=== PATIENT | male | born 1985 | race Caucasian/White ===

== ENCOUNTER 2019-05-22 19:17 | Emergency (ER) | payer BC ==
[2019-05-22] MEDS ORDERED: LIDOCAINE 2% W/EPI 1:200,000 MPF 20 ML VIAL IM ONE (19:59)
--- NOTE | 2019-05-22 20:15 | EDPHYS ---
Physician Documentation [facility] Name: William Malave Age: 33 yrs Sex: Male : 1985 Arrival Date: 05/22/2019 Time: 19:19 Bed 20 Private MD: Maciej Reed ED Physician June Pabon HPI: 05/22 20:10 This 33 yrs old Male presents to ER via Ambulatory with complaints of ma2 Laceration. 20:10 The complaints affect the right mnotoya. Context: The problem was sustained at home. ma2 Onset: The symptoms/episode began/occurred suddenly, 1 hour(s) ago. Associated signs and symptoms: Pertinent negatives fever, tingling, vomiting. Severity of symptoms: At their worst the symptoms were mild, in the emergency department the symptoms are unchanged. Historical: - Allergies: 19:53 No Known Allergies; lp1 - Home Meds: 19:53 Unable to obtain [Active]; lp1 - PMHx: 19:53 Depression; lp1 - PSHx: 19:53 Cholecystectomy; Hernia repair; lp1 - Immunization history:: Last tetanus immunization: > 10 years ago. - Social history:: Smoking status: Patient uses tobacco products, smokes one-half pack cigarettes per day, Patient/guardian denies using alcohol, street drugs, The patient lives with family. - Ebola Screening: : No symptoms or risks identified at this time. - Family history:: not pertinent. ROS: 20:10 Constitutional: Negative for fever, chills, and weight loss. ma2 20:10 All other systems are negative. Exam: 20:10 Constitutional: This is a well developed, well nourished patient who is awake, alert, ma2 and in no acute distress. Head/Face: Normocephalic, atraumatic. Cardiovascular: Regular rate and rhythm with a normal S1 and S2. No gallops, murmurs, or rubs. Normal PMI, no JVD. No pulse deficits. Respiratory: Lungs have equal breath sounds bilaterally, clear to auscultation and percussion. No rales, rhonchi or wheezes noted. No increased work of breathing, no retractions or nasal flaring. Abdomen/GI: Soft, non-tender, with normal bowel sounds. No distension or tympany. No guarding or rebound. No evidence of tenderness throughout. Back: No spinal tenderness. No costovertebral tenderness. Full range of motion. MS/ Extremity: Pulses equal, no cyanosis. Neurovascular intact. Full, normal range of motion. Neuro: Awake and alert, GCS 15, oriented to person, place, time, and situation. Cranial nerves II-XII grossly intact. Motor strength 5/5 in all extremities. Sensory grossly intact. Cerebellar exam normal. Normal gait. 20:10 Skin: injury, laceration(s), the wound is approximately 15 cm(s), with a depth of 1 cm(s), of the left leg. Vital Signs: 19:52 BP 138 / 93; Pulse 102; Resp 18; Temp 98.3(O); Pulse Ox 99% on R/A; Weight 104.33 kg; lp1 Height 6 ft. 0 in. (182.88 cm); Pain 7/10; 19:52 Body Mass Index 31.19 (104.33 kg, 182.88 cm) lp1 Laceration: 20:10 Wound Repair of 15cm ( 5.9in ) subcutaneous laceration to left leg. Distal ma2 neuro/vascular/tendon intact. Anesthesia: Local anesthetic administered with 10 mls of 1% lidocaine w/ Epi. Wound prep: Moderate cleansing. Skin closed with 10 1-0 Paulette using simple sutures and sterile technique. Patient tolerated well. MDM: 19:55 Patient medically screened. ma2 20:10 Differential diagnosis: contusion, abrasion, laceration. Data reviewed: vital signs, ma2 nurses notes. Counseling: I had a detailed discussion with the patient and/or guardian regarding: the historical points, exam findings, and any diagnostic results supporting the discharge/admit diagnosis, the presence of at least one elevated blood pressure reading (>120/80) during this emergency department visit, the need for outpatient follow up. Medical screen evaluation completed. EMTALA emergency medical condition absent. Response to treatment: the patient's symptoms have resolved after treatment. 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 Exp: ea 01/05/2021. Lot #: [id number]. } Route: IM; Site: right deltoid; 21:30 Follow up: Response: No adverse reaction ao Disposition: 05/22/19 20:13 Discharged to Home. Impression: Laceration without foreign body, left lower leg. - Condition is Stable. - Discharge Instructions: Laceration Care, Adult. - Work release form, Medication Reconciliation Form, Thank You Letter, Antibiotic Education, Prescription Opioid Use form. - Follow up: Private Physician; When: Tomorrow; Reason: Continuance of care. - Notes: remove paulette in 15 days Signatures: Aretha Lindsay RN RN lp1 Kvng Chong, RN RN Angeline Zelaya, RN June Lala ea, MD MD ma2 Corrections: (The following items were deleted from the chart) 20:52 20:13 05/22/2019 20:13 Discharged to Home. Impression: Laceration without foreign body, ao left lower leg. Condition is Stable. Forms are Medication Reconciliation Form, Thank You Letter, Antibiotic Education, Prescription Opioid Use. Follow up: Private Physician; When: Tomorrow; Reason: Continuance of care. ma2
--- NOTE | 2019-05-22 20:15 | ER ---
Nurse's Notes [facility] Name: William Malave Age: 33 yrs Sex: Male : 1985 Arrival Date: 05/22/2019 Time: 19:19 Bed 20 Private MD: Maciej Reed Diagnosis: Laceration without foreign body, left lower leg Presentation: 05/22 19:50 Presenting complaint: Patient states: Was helping move furniture when he picked up desk lp1 and metal baler came out and cut left leg; States not up to date on tetanus shot; Lateral left leg not actively bleeding. Transition of care: patient was not received from another setting of care. Complicating Factors: There are no complicating factors for this patient. Onset of symptoms was May 22, 2019 at 18:00. Risk Assessment: Do you want to hurt yourself or someone else? Patient reports no desire to harm self or others. Initial Sepsis Screen: Does the patient meet any 2 criteria? No. Patient's initial sepsis screen is negative. Does the patient have a suspected source of infection? No. Patient's initial sepsis screen is negative. Care prior to arrival: None. 19:50 Method Of Arrival: Ambulatory lp1 19:50 Acuity: RASHID 4 lp1 Historical: - Allergies: 19:53 No Known Allergies; lp1 - Home Meds: 19:53 Unable to obtain [Active]; lp1 - PMHx: 19:53 Depression; lp1 - PSHx: 19:53 Cholecystectomy; Hernia repair; lp1 - Immunization history:: Last tetanus immunization: > 10 years ago. - Social history:: Smoking status: Patient uses tobacco products, smokes one-half pack cigarettes per day, Patient/guardian denies using alcohol, street drugs, The patient lives with family. - Ebola Screening: : No symptoms or risks identified at this time. - Family history:: not pertinent. Screenin:53 Abuse screen: Denies threats or abuse. Denies injuries from another. Nutritional lp1 screening: No deficits noted. Tuberculosis screening: No symptoms or risk factors identified. Fall Risk None identified. Assessment: 20:08 General: Appears in no apparent distress. comfortable, Behavior is calm, cooperative, ao appropriate for age. Pain: Complains of pain in left leg. Neuro: Level of Consciousness is awake, alert, obeys commands, Oriented to person, place, time, situation, Appropriate for age Moves all extremities. Full function Speech is normal, Facial symmetry appears normal. Cardiovascular: Reports None Capillary refill < 3 seconds Patient's skin is warm and dry. Respiratory: Airway is patent Respiratory effort is even, unlabored, Respiratory pattern is regular, symmetrical. GI: Abdomen is non-distended, Bowel sounds present X 4 quads. : No signs and/or symptoms were reported regarding the genitourinary system. EENT: No signs and/or symptoms were reported regarding the EENT system. Derm: Skin is intact, Skin is pink, warm \T\ dry. normal, Skin temperature is warm Wound noted left leg and right montoya. Musculoskeletal: Circulation, motion, and sensation intact. Range of motion: intact in all extremities, Swelling present in right montoya. Injury Description: Laceration sustained to right montoya is contaminated, not bleeding, was sustained 1-2 hours ago. 20:51 Reassessment: Dc instructions given to patient. Patient was advise to follow up and ao return if any complications. Pt agree with POC. Vital Signs: 19:52 BP 138 / 93; Pulse 102; Resp 18; Temp 98.3(O); Pulse Ox 99% on R/A; Weight 104.33 kg; lp1 Height 6 ft. 0 in. (182.88 cm); Pain 7/10; 19:52 Body Mass Index 31.19 (104.33 kg, 182.88 cm) lp1 ED Course: 19:19 Patient arrived in ED. am2 19:20 Maciej Reed MD is Private Physician. am2 19:52 Triage completed. lp1 19:52 Arm band placed on right wrist. lp1 19:55 June Pabon MD is Attending Physician. ma2 20:08 Kvng Chong RN is Primary Nurse. ao 20:13 Patient has correct armband on for positive identification. Pulse ox on. NIBP on. ao 20:51 No provider procedures requiring assistance completed. Patient did not have IV access ao during this emergency room visit. 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 Exp: ea 01/05/2021. Lot #: [id number]. } Route: IM; Site: right deltoid; 21:30 Follow up: Response: No adverse reaction ao Outcome: 20:13 Discharge ordered by . kenton 20:51 Discharged to home ambulatory. ao 20:51 Condition: stable 20:51 Discharge instructions given to patient, Instructed on discharge instructions, follow up and referral plans. Demonstrated understanding of instructions, follow-up care, medications. 20:52 Patient left the ED. ao Signatures: Aretha Lindsay, RN RN lp1 Kvng Chong RN RN Chrissy Mccormick Elena RN June Lala ea, MD MD ma2
[2019-05-22] MEDS ORDERED: TETANUS & DIPHTHERIA TOX,ADULT 0.5 ML VIAL ONE (20:29)
== END 2019-05-22 20:52 | disposition home or self-care (01) ==
LOC: ER 19:17
PROC: 0JQN0ZZ Repair Right Lower Leg Subcutaneous Tissue and Fascia, Open Approach (ICD-10-PCS; principal; 2019-05-22)
DX: S81.811A Laceration without foreign body, right lower leg, initial encounter (principal); W45.8XXA Other foreign body or object entering through skin, initial encounter; Y93.9 Activity, unspecified; Y92.009 Unspecified place in unspecified non-institutional (private) residence as the place of occurrence of the external cause; Z23 Encounter for immunization; F32.9 Major depressive disorder, single episode, unspecified; F17.210 Nicotine dependence, cigarettes, uncomplicated
CPT/HCPCS: 90471; 90714; 99283

== ENCOUNTER 2023-03-31 12:24 | Emergency (ER) | payer BC, OTHER ==
[2023-03-31] MEDS ORDERED: ONDANSETRON 4 MG/2 ML VIAL ONE (12:55)
[2023-03-31] MEDS ORDERED: MORPHINE 4 MG/ML SYR ONE ×2 (12:55→14:14)
[2023-03-31 13:08] LABS: Absolute Lymphocytes (CBC) 2.6 K/uL (0.7-4.9); Hematocrit 46.3 % (39.6-49.0); Lymphocytes % 23.3 % (15.3-44.8); MCV 88.8 fL (80-100); MPV 9.6 fL (7.6-11.3); RBC Red Blood Cell Count 5.21 M/uL (4.33-5.43)
[2023-03-31 13:25] LABS: Potassium 3.9 mEq/L (3.5-5.1); Troponin High Sensitivity 4.2 pg/mL (<58.9)
--- NOTE | 2023-03-31 13:25 | RAD REPORT ---
EXAM DESCRIPTION: CT - Chest For Pe Angio - 03/31/2023 1:02 pm CLINICAL HISTORY: Chest pain COMPARISON: None. TECHNIQUE: Dynamically enhanced axial 3 mm thick images of the chest were obtained during administra tion of 75 mL Isovue 370 IV contrast. Coronal and oblique reconstruction images were generated and re viewed. Exam utilizes a protocol for optimal evaluation of pulmonary arterial tree. Maximum intensity projections 3D imaging was utilized All CT scans are performed using dose optimization technique as appropriate and may include automated exposure control or mA/KV adjustment according to patient size. FINDINGS: A pulmonary embolus is not seen. A thoracic aortic aneurysm is not noted. A pleural effusion is not seen. A pericardial effusion is not seen. A lung consolidation is not present. IMPRESSION: Negative for a pulmonary embolism.
[2023-03-31] MEDS ORDERED: KETOROLAC 30 MG/ML INJ ONE (13:29)
--- NOTE | 2023-03-31 13:35 | RAD REPORT ---
EXAM DESCRIPTION: Prudence Single View03/31/2023 1:18 pm CLINICAL HISTORY: Chest pain COMPARISON: 2012 FINDINGS: The lungs appear clear of acute infiltrate. The heart is probably borderline enlarged
--- NOTE | 2023-03-31 14:16 | EDPHYS ---
Physician Documentation [facility] Name: William Malave Age: 37 yrs Sex: Male : 1985 Arrival Date: 03/31/2023 Time: 12:24 Bed 15 Private MD: ED Physician Wiley Lange HPI: 03/31 12:59 This 37 yrs old Male presents to ER via Ambulatory with complaints of right flank pain. rn 12:59 The patient or guardian reports chest pain that is located primarily in the anterior rn chest wall, right. The pain does not radiate. Associated signs and symptoms: Pertinent positives: cough, Pertinent negatives: abdominal pain, diaphoresis, palpitations, shortness of breath, syncope, vomiting. The chest pain is described as sharp, stabbing. Duration: The patient or guardian reports multiple episodes, that are intermittent. Modifying factors: The symptoms are alleviated by nothing. the symptoms are aggravated by cough, deep breath. Severity of pain: At its worst the pain was moderate in the emergency department the pain has resolved. The patient has not experienced similar symptoms in the past. The patient has not recently seen a physician. Pt reports right sided flank/chest pain, began yesterday, + smoker, + cough, no hemoptysis, no hx of DVT/PE, no sob. Reports pain worse with deep breath. NO trauma. No abd pain. Has had gallbladder removed. . Historical: - Allergies: 12:40 No Known Allergies; ld1 - PMHx: 12:39 Depression; ld1 - PSHx: 12:40 Cholecystectomy; ld1 - Immunization history:: Adult Immunizations up to date, Client reports receiving the 2nd dose of the Covid vaccine. - Social history:: Smoking status: Patient reports the use of cigarette tobacco products, smokes one pack cigarettes per day. Patient/guardian denies using alcohol. - Family history:: not pertinent. - Hospitalizations: : No recent hospitalization is reported. ROS: 12:59 Constitutional: Negative for fever, chills, and weight loss, Cardiovascular: Negative rn for palpitations, and edema Respiratory: + cough and sharp pain with deep inspiration Abdomen/GI: Negative for abdominal pain, nausea, vomiting, diarrhea, and constipation, Back: Negative for injury MS/Extremity: Negative for injury and deformity, Skin: Negative for injury, rash, and discoloration, Neuro: Negative for headache, weakness, numbness, tingling, and seizure. Exam: 12:59 Constitutional: This is a well developed, well nourished patient who is awake, alert, rn appears uncomfortable Head/Face: Normocephalic, atraumatic. Cardiovascular: Regular rate and rhythm. No pulse deficits. Respiratory: No increased work of breathing, no retractions or nasal flaring. Clear bilateral breath sounds. Abdomen/GI: Soft, non-tender Skin: Warm, dry MS/ Extremity: Pulses equal, no cyanosis. Neuro: Awake and alert, GCS 15 13:25 ECG was reviewed by the Attending Physician. rn Vital Signs: 12:37 BP 136 / 91; Pulse 93; Resp 20; Temp 98.1(O); Pulse Ox 98% on R/A; Weight 104.33 kg; ld1 Height 6 ft. 0 in. ; Pain 7/10; 13:29 BP 124 / 88; Pulse 89; Resp 18; Pulse Ox 99% ; ko1 14:35 BP 118 / 82; Pulse 81; Resp 16; Pulse Ox 99% ; ko1 12:37 Body Mass Index 31.19 (104.33 kg, 182.88 cm) ld1 12:37 Pain Scale: Adult ld1 MDM: 12:30 Patient medically screened. rn 13:58 Differential diagnosis: anxiety, chest wall pain, costochondritis, gastroesophageal rn reflux disease (GERD), pericarditis, pleurisy, pneumonia, pneumothorax, pulmonary embolus, stable angina, anxiety, pleurisy, smoking related, PE, pneumonia. Data reviewed: vital signs, nurses notes, lab test result(s), EKG, radiologic studies, CT scan, and as a result, I will discharge patient. 14:10 Counseling: I had a detailed discussion with the patient and/or guardian regarding: the rn historical points, exam findings, and any diagnostic results supporting the discharge/admit diagnosis, lab results, radiology results, the need for outpatient follow up, to return to the emergency department if symptoms worsen or persist or if there are any questions or concerns that arise at home. Response to treatment: the patient's symptoms have mildly improved after treatment, and as a result, I will admit patient. Special discussion: Based on the patient's history, exam, and Dx evaluation, there is no indication for emergent intervention or inpatient Tx. It is understood by the patient/guardian that if the Sx's persist or worsen they need to return immediately for re-evaluation. I discussed with the patient/guardian in detail that at this point there is no indication for admission to the hospital. It is understood, however, that if the symptoms persist or worsen the patient needs to return immediately for re-evaluation. ED course: CT PE neg for acute findings, no oxygen requirement, afebrile. No evidence of infection at this time, ECG normal, trop neg. Patient states still having pain, will re-medicate. Explained need to stop smoking and return precautions. Had long discussion with patient regarding possible etiologies of pain, despite neg workup, urge him to f/u with pcp and quit smoking. Return precautions given and understood. Pt ambulatory without assistance to bathroom and back to room. . 03/31 12:43 Order name: CBC with Diff; Complete Time: 13:18 rn 03/31 12:43 Order name: Basic Metabolic Panel; Complete Time: 13:33 rn 03/31 12:43 Order name: Troponin High Sensitivity; Complete Time: 13:33 rn 03/31 12:43 Order name: XRAY Chest (1 view); Complete Time: 13:47 rn 03/31 12:43 Order name: CT Chest For PE Angio; Complete Time: 13:33 rn 03/31 12:43 Order name: EKG; Complete Time: 12:43 rn 03/31 12:43 Order name: IV Start; Complete Time: 12:50 rn 03/31 12:43 Order name: EKG - Nurse/Tech; Complete Time: 12:50 rn EC:25 Rate is 85 beats/min. Rhythm is regular. QRS Anderson is Normal. SD interval is normal. QRS rn interval is normal. QT interval is normal. No Q waves. T waves are Normal. No ST changes noted. Clinical impression: Normal ECG. Interpreted by me. Reviewed by me. Administered Medications: 12:50 Drug: morphine IVP or IV 4 mg Route: IVP; Infused Over: 4 mins; Site: right antecubital;ko1 12:51 Drug: Ondansetron IVP 4 mg Route: IVP; Site: right antecubital; ko1 13:25 Drug: Ketorolac IVP 30 mg Route: IVP; Site: right antecubital; ko1 14:08 Drug: morphine IVP or IV 4 mg Route: IVP; Infused Over: 4 mins; Site: right antecubital;ko1 Disposition Summary: 03/31/23 14:15 Discharge Ordered Location: Home rn Problem: new rn Symptoms: have improved rn Condition: Stable rn Diagnosis - Chest pain on breathing rn - Pleurisy rn Followup: rn - With: Private Physician - When: As needed - Reason: Recheck today's complaints, Re-evaluation by your physician Discharge Instructions: - Discharge Summary Sheet rn - Nonspecific Chest Pain, Adult rn - Pleurisy rn Forms: - Medication Reconciliation Form rn - Thank You Letter rn - 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 Day 2, 3, 4 , 5 take one (1) tablet once daily.; 6 tablet; Refills: 0, Product Selection Permitted - Medrol (Benjie) 4 mg Oral Tablets, Dose Pack - take 1 tablet by ORAL route as directed - follow package instructions; 1 rn packet; Refills: 0, Product Selection Permitted Signatures: Dispatcher [employer] EDMS Wiley Lange MD MD rn Sims, Lauren RN RN ld1 Linda Hoskins, RN RN ko1 Corrections: (The following items were deleted from the chart) 13:02 12:59 Constitutional: Negative for fever, chills, and weight loss, Cardiovascular: rn Negative for palpitations, and edema Respiratory: + cough and sharp pain with deep inspiration Abdomen/GI: Negative for abdominal pain, nausea, vomiting, diarrhea, and constipation, Back: Negative for injury and pain, MS/Extremity: Negative for injury and deformity, Skin: Negative for injury, rash, and discoloration, Neuro: Negative for headache, weakness, numbness, tingling, and seizure, rn 14:14 12:59 Constitutional: This is a well developed, well nourished patient who is awake, rn alert, appears uncomfortable Head/Face: Normocephalic, atraumatic. Cardiovascular: Regular rate and rhythm. No pulse deficits. Respiratory: No increased work of breathing, no retractions or nasal flaring. Abdomen/GI: Soft, non-tender Skin: Warm, dry MS/ Extremity: Pulses equal, no cyanosis. Neuro: Awake and alert, GCS 15 rn
--- NOTE | 2023-03-31 14:16 | ER ---
Nurse's Notes [facility] Name: William Malave Age: 37 yrs Sex: Male : 1985 Arrival Date: 03/31/2023 Time: 12:24 Bed 15 Private MD: Diagnosis: Chest pain on breathing;Pleurisy Presentation: 03/31 12:37 Chief complaint: Patient states: RUQ pain, right flank - radiates to middle abdomen. ld1 Coronavirus screen: At this time, the client does not indicate any symptoms associated with coronavirus-19. Ebola Screen: No symptoms or risks identified at this time. Initial Sepsis Screen: Does the patient meet any 2 criteria? No. Patient's initial sepsis screen is negative. Does the patient have a suspected source of infection? No. Patient's initial sepsis screen is negative. Risk Assessment: Do you want to hurt yourself or someone else? Patient reports no desire to harm self or others. Onset of symptoms was March 31, 2023. 12:37 Method Of Arrival: Ambulatory ld1 12:37 Acuity: RASHID 3 ld1 Triage Assessment: 12:39 General: Appears in no apparent distress. comfortable, Behavior is calm, cooperative, ld1 appropriate for age. Pain: Complains of pain in abdomen Pain does not radiate. Pain currently is 7 out of 10 on a pain scale. Quality of pain is described as sharp, shooting, throbbing. EENT: No signs and/or symptoms were reported regarding the EENT system. Neuro: Level of Consciousness is awake, alert, obeys commands, Oriented to person, place, time, situation. Cardiovascular: Capillary refill < 3 seconds Patient's skin is warm and dry. Respiratory: Reports shortness of breath cough that is Airway is patent Respiratory effort is even, unlabored, the patient has mild shortness of breath. GI: Abdomen is flat, non-distended. : No signs and/or symptoms were reported regarding the genitourinary system. Derm: No signs and/or symptoms reported regarding the dermatologic system. Musculoskeletal: No signs and/or symptoms reported regarding the musculoskeletal system. Historical: - Allergies: 12:40 No Known Allergies; ld1 - PMHx: 12:39 Depression; ld1 - PSHx: 12:40 Cholecystectomy; ld1 - Immunization history:: Adult Immunizations up to date, Client reports receiving the 2nd dose of the Covid vaccine. - Social history:: Smoking status: Patient reports the use of cigarette tobacco products, smokes one pack cigarettes per day. Patient/guardian denies using alcohol. - Family history:: not pertinent. - Hospitalizations: : No recent hospitalization is reported. Screenin:29 [facility] [place] ED Fall Risk Assessment (Adult) History of falling in the last 3 months, ko1 including since admission No falls in past 3 months (0 pts) Confusion or Disorientation No (0 pts) Intoxicated or Sedated No (0 pts) Impaired Gait No (0 pts) Mobility Assist Device Used No (0 pt) Altered Elimination No (0 pt) Score/Fall Risk Level 0 - 2 = Low Risk Oriented to surroundings, Maintained a safe environment, Educated pt \T\ family on fall prevention, incl call for assistance when getting out of bed, Assessed \T\ reinforced patient's understanding of fall precautions, Provided non-skid footwear, Hourly rounding (assess needs \T\ fall precautionary measures) done, Used ambulatory aids as needed (educated on \T\ assisted with), Used gait belt as appropriate. Abuse screen: Denies threats or abuse. Denies injuries from another. Nutritional screening: No deficits noted. Tuberculosis screening: No symptoms or risk factors identified. Assessment: 12:56 Reassessment: pt to CT. db Vital Signs: 12:37 BP 136 / 91; Pulse 93; Resp 20; Temp 98.1(O); Pulse Ox 98% on R/A; Weight 104.33 kg; ld1 Height 6 ft. 0 in. ; Pain 7/10; 13:29 BP 124 / 88; Pulse 89; Resp 18; Pulse Ox 99% ; ko1 14:35 BP 118 / 82; Pulse 81; Resp 16; Pulse Ox 99% ; ko1 12:37 Body Mass Index 31.19 (104.33 kg, 182.88 cm) ld1 12:37 Pain Scale: Adult ld1 ED Course: 12:30 Patient arrived in ED. am2 12:30 Wiley Lange MD is Attending Physician. rn 12:39 Triage completed. ld1 12:39 Arm band placed on right wrist. ld1 12:43 Linda Hoskins, RN is Primary Nurse. ko1 12:50 CBC with Diff Sent. ko1 12:50 Basic Metabolic Panel Sent. ko1 12:50 Troponin High Sensitivity Sent. ko1 12:54 Initial lab(s) drawn, by co, sent to lab. Inserted saline lock: 20 gauge in right cm10 antecubital area, using aseptic technique. Blood collected. 13:03 CT Chest For PE Angio In Process Unspecified. EDMS 13:19 XRAY Chest (1 view) In Process Unspecified. EDMS 13:29 Patient has correct armband on for positive identification. Placed in gown. Bed in low ko1 position. Call light in reach. Side rails up X 1. Client placed on continuous cardiac and pulse oximetry monitoring. NIBP monitoring applied. groundwater monitoring technician on. 14:35 No provider procedures requiring assistance completed. IV discontinued, intact, ko1 bleeding controlled, No redness/swelling at site. Pressure dressing applied. Administered Medications: 12:50 Drug: morphine IVP or IV 4 mg Route: IVP; Infused Over: 4 mins; Site: right antecubital;ko1 12:51 Drug: Ondansetron IVP 4 mg Route: IVP; Site: right antecubital; ko1 13:25 Drug: Ketorolac IVP 30 mg Route: IVP; Site: right antecubital; ko1 14:08 Drug: morphine IVP or IV 4 mg Route: IVP; Infused Over: 4 mins; Site: right antecubital;ko1 Medication: 13:29 VIS not applicable for this client. ko1 Outcome: 14:15 Discharge ordered by . rn 14:35 Discharged to home ambulatory. ko1 14:35 Condition: improved 14:35 Discharge instructions given to patient, Instructed on discharge instructions, follow up and referral plans. medication usage, Demonstrated understanding of instructions, follow-up care, medications, Prescriptions given X 3. 14:36 Patient left the ED. ko1 Signatures: Dispatcher [employer] EDMS Wiley Lange MD MD rn Moreno, Amanda am2 Sims, Lauren RN RN ld1 Linda Hoskins RN RN ko1 Hanh Guerrero RN RN db Shannon Swartz RN RN cm10
[2023-03-31 15:02] VITALS: TEMP 98.1
[2023-03-31 15:05] VITALS: O2SAT 99
[2023-03-31 15:07] VITALS: BP 118/82
--- NOTE | 2023-04-01 12:16 | EKG ---
Test Date: 2023-03-31 Test Time: 12:51:38 Health Assistant: PRO MEASUREMENT RESULTS: Intervals: Rate: 85 MA: 116 QRSD: 92 QT: 350 QTc: 416 Barnum: P: 62 MA: 116 QRS: 56 T: 47 INTERPRETIVE STATEMENTS: Normal sinus rhythm Normal ECG Compared to ECG 03/31/2023 12:50:49 No significant changes Electronically Signed On 04-01-23 12:13:33 CDT by Marquis Fuentes
--- NOTE | 2023-04-01 12:16 | EKG ---
Test Date: 2023-03-31 Test Time: 12:50:49 Coverer: PRO MEASUREMENT RESULTS: Intervals: Rate: 80 MA: 122 QRSD: 86 QT: 360 QTc: 415 Coleman: P: 48 MA: 122 QRS: 57 T: 46 INTERPRETIVE STATEMENTS: Normal sinus rhythm Normal ECG Compared to ECG 09/07/2013 02:12:22 No significant changes Electronically Signed On 04-01-23 12:13:51 CDT by Marquis Fuentes
== END 2023-03-31 14:36 | disposition home or self-care (01) ==
LOC: ER 12:24
DX: R09.1 Pleurisy (principal); F17.210 Nicotine dependence, cigarettes, uncomplicated
CPT/HCPCS: 93005 ×2; 85025; 80048; 36415; 84484; 71275; 71045; 96375; 96374; 99285; Q9967; J2405